=== PATIENT | male | born 1940 | race Hispanic/Latino ===

== ENCOUNTER 2018-08-26 19:20 | Observation (INO) | payer MEDICARE ==
[~2018-08-26] VITALS: Ht 175.3 cm; Wt 159.0 kg
[2018-08-26 20:26] LABS: EOSINOPHILS % (AUTO) 5.4 % (0.0-8.0); HEMATOCRIT 37.2 % (42-54); MEAN CORPUSCULAR HEMOGLOBIN 28.5 pg (27.0-33.0); MEAN CORPUSCULAR HGB CONC 32.3 g/dL (32.0-36.0); MEAN CORPUSCULAR VOLUME 88.3 fL (79-99); MONOCYTES % (AUTO) 8.6 % (3.0-13.0); PLATELET COUNT (AUTO) 229 K/uL (130-400); RED BLOOD CELL COUNT(AUTO) 4.22 MIL/uL (4.50-6.20); RED CELL DISTRIBUTION WIDTH 13.5 % (11.0-15.5); WHITE BLOOD COUNT (AUTO) 8.8 K/uL (4.8-10.8)
[2018-08-26 20:38] LABS: INR 0.97 (0.85-1.15); PARTIAL THROMBOPLASTIN TIME 27.3 SEC (26.3-35.5); PROTHROMBIN TIME 10.2 SEC (9.6-11.6)
[2018-08-26 20:48] LABS: CREATININE 1.3 mg/dL (0.5-1.5); POTASSIUM 5.3 mmol/L (3.5-5.1)
[2018-08-26 20:53] LABS: ALBUMIN 3.3 g/dL (3.5-5.0); BILIRUBIN,TOTAL 0.2 mg/dL (0.2-1.0); TOTAL PROTEIN, SERUM 6.9 g/dL (6.0-8.3)
[2018-08-26 21:18] LABS: APPEARANCE,URINE Clear (CLEAR); BILIRUBIN,URINE Negative (NEGATIVE); COLOR,URINE Yellow (YELLOW); GLUCOSE, URINE (UA) Negative (NEGATIVE); KETONES,URINE Negative (NEGATIVE); LEUKOCYTE ESTERASE ,URINE Trace (NEGATIVE); NITRATE,URINE Negative (NEGATIVE); OCCULT BLOOD,URINE Negative (NEGATIVE); PH,URINE 6.5 (5.0-8.0); PROTEIN,URINE Negative (NEGATIVE); UROBILINOGEN,URINE 0.2 mg/dL (0.2-1.0)
[2018-08-26 21:35] LABS: BACTERIA,URINE Rare /HPF (None Seen); RBC,URINE None Seen /HPF (0-1); SQUAMOUS EPITHELIAL CELL,UR None Seen /HPF (0-2); WBC,URINE 0-1 /HPF (0-1)
[2018-08-26] MEDS: SODIUM CHLORIDE 0.9% 1000ML 1,000 ML IV SCH (22:34)
[2018-08-26] MEDS ORDERED: DEXTROSE 50%-WATER 50 ML DISP.SYRIN IV ONE (22:41)
[2018-08-26] MEDS ORDERED: INSULIN HUMULIN R 100 UNIT/ML 3ML ONE (22:41)
[2018-08-26] MEDS ORDERED: ACETAMINOPHEN 325 MG TAB PO PRN (22:45)
[2018-08-26] MEDS ORDERED: ONDANSETRON HCL 4 MG/2 ML VIAL IV PRN (22:45)
[2018-08-26] MEDS ORDERED: ALBUTEROL SULFATE 0.083% 2.5 MG/3 ML INH IH PRN (22:45)
[2018-08-26] MEDS: DOXYCYCLINE 100MG+NS 250ML 250 ML IV SCH (22:45)
[2018-08-26] MEDS ORDERED: GUAIFENESIN-CODEINE 5 ML SYRUP PO PRN (23:00)
[2018-08-26] MEDS ORDERED: SODIUM CHLORIDE 0.9% 1000ML 1,000 ML IV ONE (23:28)
[2018-08-26] MEDS ORDERED: DOXYCYCLINE 100MG+NS 250ML 250 ML IV ONE (23:28)
[2018-08-27 01:25] VITALS: BP 160/76
[2018-08-27 03:50] VITALS: BP 151/51
[2018-08-27 04:58] LABS: BILIRUBIN,TOTAL 0.4 mg/dL (0.2-1.0); CREATININE 1.2 mg/dL (0.5-1.5); POTASSIUM 4.5 mmol/L (3.5-5.1); TOTAL PROTEIN, SERUM 6.7 g/dL (6.0-8.3)
[2018-08-27] MEDS: INSULIN HUMULIN R 100 UNIT/ML 3ML SQ SCH ×4 (06:48→21:00)
[2018-08-27 08:23] VITALS: BP 141/53
[2018-08-27] MEDS ORDERED: SODIUM POLYSTYRENE SULFONATE 15 GM/60 ML ML PO SCH (09:00)
[2018-08-27] MEDS: FAMOTIDINE/PF 20 MG/2 ML VIAL IV SCH ×2 (09:02→21:25)
[2018-08-27] MEDS: SODIUM CHLORIDE 0.9% 1000ML 1,000 ML IV SCH (09:10)
[2018-08-27] MEDS: DOXYCYCLINE 100MG+NS 250ML 250 ML IV SCH ×2 (11:46→21:26)
[2018-08-27] MEDS ORDERED: ATOR40TA71 PO (12:11)
[2018-08-27] MEDS ORDERED: METF-444 PO (12:11)
[2018-08-27] MEDS ORDERED: ASPI-1181 PO (12:11)
[2018-08-27] MEDS ORDERED: AMLO5TAB9 PO (12:11)
[2018-08-27] MEDS ORDERED: ALBU0.63 IH (12:11)
[2018-08-27] MEDS ORDERED: ALBU8.5H8 IH (12:11)
[2018-08-27] MEDS ORDERED: IPRATROPIUM/ALBUTEROL SULFATE 3 ML SOLUTION IH PRN (12:45)
[2018-08-27] MEDS: IPRATROPIUM 0.5 MG/2.5 ML INH IH SCH ×2 (15:09→20:23)
[2018-08-27 16:00] VITALS: BP 160/77
[2018-08-27 19:40] VITALS: BP 159/71
[2018-08-27] MEDS: ATORVASTATIN CALCIUM 40 MG TABLET PO SCH (21:26)
[2018-08-27 23:09] VITALS: BP 155/70
[2018-08-28 04:00] VITALS: BP 145/61
[2018-08-28 04:30] LABS: HEMATOCRIT 38.4 % (42-54); MEAN CORPUSCULAR HEMOGLOBIN 28.3 pg (27.0-33.0); MEAN CORPUSCULAR VOLUME 88.4 fL (79-99); NUCLEATED RED BLOOD CELLS 0.1 % (0.0-0.19); PLATELET COUNT (AUTO) 208 K/uL (130-400); RED BLOOD CELL COUNT(AUTO) 4.34 MIL/uL (4.50-6.20); RED CELL DISTRIBUTION WIDTH 13.8 % (11.0-15.5); WHITE BLOOD COUNT (AUTO) 7.1 K/uL (4.8-10.8)
[2018-08-28 04:45] LABS: CREATININE 1.2 mg/dL (0.5-1.5); POTASSIUM 4.5 mmol/L (3.5-5.1)
[2018-08-28] MEDS: INSULIN HUMULIN R 100 UNIT/ML 3ML SQ SCH ×4 (06:26→20:56)
[2018-08-28] MEDS: IPRATROPIUM 0.5 MG/2.5 ML INH IH SCH ×2 (08:21→20:37)
[2018-08-28] MEDS ORDERED: AMLODIPINE BESYLATE 5 MG TAB PO SCH (09:00)
[2018-08-28] MEDS ORDERED: ASPIRIN 81 MG EC TAB PO SCH (09:00)
[2018-08-28 09:24] VITALS: BP 133/59
[2018-08-28] MEDS: DOXYCYCLINE 100MG+NS 250ML 250 ML IV SCH (09:49)
[2018-08-28] MEDS: FAMOTIDINE/PF 20 MG/2 ML VIAL IV SCH ×2 (10:00→21:16)
[2018-08-28] MEDS ORDERED: DOXYCYCLINE HYCLATE 100 MG TABLET PO SCH (10:30)
[2018-08-28 12:06] VITALS: BP 147/81
[2018-08-28 17:14] VITALS: BP 131/61
[2018-08-28 20:18] VITALS: BP 160/67
[2018-08-28] MEDS: ATORVASTATIN CALCIUM 40 MG TABLET PO SCH (21:16)
[2018-08-28] MEDS ORDERED: DOXYCYCLINE HYCLATE 100 MG TABLET PO ONE (22:19)
[2018-08-28] MEDS ORDERED: DOXY100C2 PO (22:39)
[2018-08-28] MEDS ORDERED: DOXY-252 PO (22:40)
--- NOTE | 2018-08-28 22:57 | NUR ---
Patient is going with Daughter Cherie [phone] to her home, [place] in private car. Patient will see his primary MD Dr.Juan Dominguez in 2 days. Prescription available to order picker/assembler at [facility] ,[facility].
== END 2018-08-28 22:51 | disposition home or self-care (01) ==
LOC: EDH 19:20 → EDHIP 22:00 → 4CH 08-27 01:13
PROVIDERS: ADMIT Internal Medicine; ATTEND Internal Medicine
DX: J20.9 Acute bronchitis, unspecified (principal); E87.5 Hyperkalemia; E11.9 Type 2 diabetes mellitus without complications; J18.9 Pneumonia, unspecified organism; E66.01 Morbid (severe) obesity due to excess calories; E78.5 Hyperlipidemia, unspecified; I10 Essential (primary) hypertension; Z68.43 Body mass index [BMI] 50.0-59.9, adult
CPT/HCPCS: 36415 ×3; 71045; 80048; 80053 ×2; 81001; 82948 ×8; 83880 ×2; 84484; 85025; 85027; 85610; 85730; 93005; 94640 ×3; 94664; 96365; 96366 ×2; 96375; 96376 ×2; 99284; G0378 ×49; J1815; J3490 ×8; J7030; J7070

== ENCOUNTER 2018-12-22 17:58 | Emergency (ER) | payer MEDICARE ==
[~2018-12-22 17:58] MED LIST: AMLO5TAB9 PO; ASPI-1181 PO; ATOR40TA71 PO; DOXY-252 PO; METF-444 PO
[2018-12-22 18:21] LABS: BASOPHILS % (AUTO) 0.3 % (0.0-5.0); EOSINOPHILS % (AUTO) 1.3 % (0.0-8.0); HEMATOCRIT 41.7 % (42-54); LYMPHOCYTES % (AUTO) 11.2 % (21.0-51.0); MEAN CORPUSCULAR HEMOGLOBIN 28.8 pg (27.0-33.0); MEAN CORPUSCULAR HGB CONC 32.7 g/dL (32.0-36.0); MONOCYTES % (AUTO) 5.4 % (3.0-13.0); NEUTROPHILS % (AUTO) 81.8 % (40.0-77.0); PLATELET COUNT (AUTO) 224 K/uL (130-400); RED BLOOD CELL COUNT(AUTO) 4.74 MIL/uL (4.50-6.20); RED CELL DISTRIBUTION WIDTH 13.3 % (11.0-15.5); WHITE BLOOD COUNT (AUTO) 12.6 K/uL (4.8-10.8)
[2018-12-22 18:32] LABS: CREATININE 1.3 mg/dL (0.5-1.5); POTASSIUM 4.9 mmol/L (3.5-5.1)
[2018-12-22 18:36] LABS: ALBUMIN 3.6 g/dL (3.5-5.0); BILIRUBIN,TOTAL 0.3 mg/dL (0.2-1.0); TOTAL PROTEIN, SERUM 7.9 g/dL (6.0-8.3)
[2018-12-22] MEDS ORDERED: ONDANSETRON HCL 4 MG/2 ML VIAL ONE (18:47)
[2018-12-22] MEDS ORDERED: SODIUM CHLORIDE 0.9% 1000ML 1,000 ML IV ONE (18:48)
== END 2018-12-22 20:04 | disposition home or self-care (01) ==
LOC: EDH 17:58
DX: R11.10 Vomiting, unspecified (principal); I10 Essential (primary) hypertension; E11.9 Type 2 diabetes mellitus without complications; E78.5 Hyperlipidemia, unspecified; Z87.891 Personal history of nicotine dependence
CPT/HCPCS: 36415; 71045; 74018; 80053; 83690; 84484; 85025; 93005; 96361; 96374; 99285; J2405; J7030

== ENCOUNTER 2022-02-21 21:44 | Emergency (ER) | payer OTHER, MEDICARE ==
[~2022-02-21] VITALS: Ht 175.3 cm; Wt 151.0 kg
[~2022-02-21 21:44] MED LIST changes: +AMLO-257 PO; -AMLO5TAB9 PO; -ASPI-1181 PO; +ASPI-1443 PO
[2022-02-21 22:51] VITALS: BP 139/63
== END 2022-02-21 23:01 | disposition home or self-care (01) ==
LOC: EDH 21:44
DX: K43.9 Ventral hernia without obstruction or gangrene (principal); E11.9 Type 2 diabetes mellitus without complications; I10 Essential (primary) hypertension; Z79.84 Long term (current) use of oral hypoglycemic drugs; Z90.49 Acquired absence of other specified parts of digestive tract

== ENCOUNTER 2023-01-02 07:28 | Observation (INO) | payer OTHER, MEDICARE ==
[2022-12-30 13:09] LABS: BASOPHILS % (AUTO) 0.5 % (0.0-5.0); EOSINOPHILS % (AUTO) 2.6 % (0.0-8.0); LYMPHOCYTES % (AUTO) 20.8 % (21.0-51.0); MEAN CORPUSCULAR HEMOGLOBIN 27.8 pg (27.0-33.0); MEAN CORPUSCULAR HGB CONC 30.2 g/dL (32.0-36.0); MEAN CORPUSCULAR VOLUME 91.9 fL (79-99); NEUTROPHILS % (AUTO) 66.9 % (40.0-77.0); PLATELET COUNT (AUTO) 220 K/uL (130-400); RED BLOOD CELL COUNT(AUTO) 4.79 MIL/uL (4.50-6.20); RED CELL DISTRIBUTION WIDTH 13.2 % (11.0-15.5); WHITE BLOOD COUNT (AUTO) 8.8 K/uL (4.8-10.8)
[2022-12-30 13:10] LABS: APPEARANCE,URINE CLEAR (CLEAR); BILIRUBIN,URINE NEGATIVE (NEGATIVE); COLOR,URINE LIGHT-YELLOW (YELLOW); GLUCOSE, URINE (UA) NEGATIVE (NEGATIVE); KETONES,URINE NEGATIVE (NEGATIVE); LEUKOCYTE ESTERASE ,URINE NEGATIVE Leu/uL (NEGATIVE); NITRATE,URINE NEGATIVE (NEGATIVE); OCCULT BLOOD,URINE NEGATIVE (NEGATIVE); PROTEIN,URINE NEGATIVE (NEGATIVE); UROBILINOGEN,URINE 0.2 mg/dL (0.2-1.0)
[2022-12-30 13:19] LABS: INR 0.99 (0.85-1.15); PROTHROMBIN TIME 10.8 SEC (9.6-11.6)
[2022-12-30 13:20] LABS: PARTIAL THROMBOPLASTIN TIME 28.2 SEC (26.3-35.5)
[2022-12-30 13:22] LABS: ALBUMIN 3.5 g/dL (3.5-5.0); CREATININE 1.4 mg/dL (0.5-1.5); POTASSIUM 4.9 mmol/L (3.5-5.1); TOTAL PROTEIN, SERUM 7.6 g/dL (6.0-8.3)
[2022-12-30 13:41] VITALS: BP 170/70
[2023-01-02] VITALS (35 sets, daily range): BP systolic 108–146; BP diastolic 54–85
[~2023-01-02] VITALS: Ht 177.8 cm; Wt 154.4 kg
[~2023-01-02 07:28] MED LIST changes: -AMLO-257 PO; -DOXY-252 PO; +FURO20TA4 PO; -METF-444 PO; +METF-910 PO; +TIOT4MIS3 IH
[2023-01-02] MEDS ORDERED: 0.9%NACL 1000ML 1,000 ML IV ONE (08:49)
[2023-01-02] MEDS ORDERED: CEFAZOLIN SODIUM 1 GM VIAL ONE (08:49)
[2023-01-02] MEDS ORDERED: LIDOCAINE PF 100MG/5ML (2%) SYRINGE 5ML ONE (10:30)
[2023-01-02] MEDS ORDERED: DEXAMETHASONE SOD PHOSPHATE 10MG/ML 1ML VIAL ONE (10:30)
[2023-01-02] MEDS ORDERED: SUCCINYLCHOLINE 200MG/10ML SYR ONE (10:30)
[2023-01-02] MEDS ORDERED: PROPOFOL 10 MG/ML 20ML VIAL IV ONE (10:31)
[2023-01-02] MEDS ORDERED: ONDANSETRON 4MG INJ ONE ×2 (10:31→15:21)
[2023-01-02] MEDS ORDERED: GLYCOPYRROLATE 1 MG/5 ML SYRINGE ONE (10:31)
[2023-01-02] MEDS ORDERED: NEOSTIGMINE 5MG/5ML SYR IV ONE (10:31)
[2023-01-02] MEDS ORDERED: ROCURONIUM 10MG/1ML SYR 10 MG/ML ML ONE ×2 (10:32→12:37)
[2023-01-02] MEDS ORDERED: MIDAZOLAM HCL 1 MG/ML 2ML VIAL ONE (10:32)
[2023-01-02] MEDS ORDERED: FENTANYL CITRATE PF 50 MCG/1 ML 2ML VIAL ONE (10:32)
[2023-01-02] MEDS ORDERED: BUPIVACAINE/PF 0.5% 30ML VIAL ONE (10:33)
[2023-01-02] MEDS ORDERED: BUPIVACAINE/PF 0.5% 30ML VIAL INJ ONE (11:49)
[2023-01-02] MEDS ORDERED: CEFAZOLIN SODIUM 3 GM VIAL IVPB ONE (11:54)
[2023-01-02] MEDS ORDERED: PHENYLEPHRINE HCL 10 MG/ML 1ML VIAL IV ONE (11:56)
[2023-01-02] MEDS ORDERED: CARV6.25 PO (11:58)
[2023-01-02] MEDS ORDERED: SUGAMMADEX SODIUM 200 MG/2 ML VIAL IV ONE (12:59)
[2023-01-02] MEDS ORDERED: MEPERIDINE-PF 25 MG/ML SYG ONE ×3 (14:55→15:42)
[2023-01-02] MEDS ORDERED: IPRATROPIUM/ALBUTEROL SULFATE 3 ML SOLUTION IH ONE ×2 (16:44→17:00)
[2023-01-02] MEDS ORDERED: TIOT4MIS3 IH (16:49)
[2023-01-02] MEDS ORDERED: SIMETHICONE 80 MG TAB.CHEW ONE (17:25)
[2023-01-02] MEDS ORDERED: MORPHINE 4 MG SYG IV PRN (19:00)
[2023-01-02] MEDS ORDERED: ONDANSETRON 4MG INJ IVP PRN (19:00)
[2023-01-02] MEDS: ALBUTEROL 0.083% 2.5 MG/3 ML INH IH SCH (21:34)
[2023-01-03 00:15] VITALS: BP 127/72
[2023-01-03 01:15] VITALS: BP 112/60
[2023-01-03 02:15] VITALS: BP 118/62
[2023-01-03 05:58] LABS: BASOPHILS % (AUTO) 0.1 % (0.0-5.0); HEMATOCRIT 40.8 % (42-54); LYMPHOCYTES % (AUTO) 9.1 % (21.0-51.0); MEAN CORPUSCULAR HEMOGLOBIN 28.4 pg (27.0-33.0); MEAN CORPUSCULAR HGB CONC 29.9 g/dL (32.0-36.0); MEAN CORPUSCULAR VOLUME 94.9 fL (79-99); MONOCYTES % (AUTO) 6.7 % (3.0-13.0); NEUTROPHILS % (AUTO) 83.9 % (40.0-77.0); PLATELET COUNT (AUTO) 178 K/uL (130-400); RED CELL DISTRIBUTION WIDTH 13.2 % (11.0-15.5); WHITE BLOOD COUNT (AUTO) 10.7 K/uL (4.8-10.8)
[2023-01-03 06:04] LABS: CREATININE 1.5 mg/dL (0.5-1.5); POTASSIUM 5.6 mmol/L (3.5-5.1)
[2023-01-03] MEDS: ALBUTEROL 0.083% 2.5 MG/3 ML INH IH SCH (07:03)
[2023-01-03 08:00] VITALS: BP 126/58
[2023-01-03] MEDS ORDERED: FUROSEMIDE 20 MG TABLET PO SCH (09:00)
[2023-01-03] MEDS ORDERED: CARVEDILOL 6.25 MG TABLET PO SCH (09:00)
[2023-01-03] MEDS ORDERED: TRAMADOL HCL 50 MG TABLET PO PRN (11:30)
[2023-01-03] MEDS ORDERED: TRAMADOL HCL 50 MG TABLET PO ONE (11:30)
[2023-01-03 12:00] VITALS: BP 106/55
[2023-01-03] MEDS ORDERED: SIMETHICONE 80 MG TAB.CHEW PO SCH (14:00)
[2023-01-03 16:00] VITALS: BP 121/47
[2023-01-03] MEDS ORDERED: ATORVASTATIN 40 MG TABLET PO SCH (21:00)
[2023-01-14] MEDS ORDERED: AEC81 PO (03:50)
== END 2023-01-03 18:00 | disposition home or self-care (01) ==
LOC: DAH 07:28 → DAHIP 07:29 → 3DH 20:00
PROVIDERS: ADMIT Student in an Organized Health Care Education/Training Program; ATTEND Student in an Organized Health Care Education/Training Program
DX: K43.6 Other and unspecified ventral hernia with obstruction, without gangrene (principal); Z20.822 Contact with and (suspected) exposure to COVID-19; I10 Essential (primary) hypertension; E11.65 Type 2 diabetes mellitus with hyperglycemia; I25.10 Atherosclerotic heart disease of native coronary artery without angina pectoris; E66.01 Morbid (severe) obesity due to excess calories; J96.00 Acute respiratory failure, unspecified whether with hypoxia or hypercapnia; E78.00 Pure hypercholesterolemia, unspecified; Z87.891 Personal history of nicotine dependence; Z79.899 Other long term (current) drug therapy; Z98.890 Other specified postprocedural states; Z68.42 Body mass index [BMI] 45.0-49.9, adult
CPT/HCPCS: 80053; 85025 ×2; 85610; 85730; 87426; 81003; 36415 ×2; 94640 ×3; 49594; 82948 ×6; 93005; 94664; 94760 ×2; 96374; 80048; G0378 ×22; A4663; J7030 ×2; J0690 ×2; J3010; J0330; J3490 ×3; J1100; J2710; J2001; J2250; J2704; J2405 ×2; J2175 ×3; J2370; C1769; G0168; C1781; A4215; A4223; A4222; A4221; A4600; J2270

== ENCOUNTER 2023-02-07 05:37 | Inpatient (IN) | payer OTHER, MEDICARE ==
[~2023-02-07] VITALS: Ht 175.3 cm; Wt 146.2 kg
[~2023-02-07 05:37] MED LIST changes: +AEC81 PO; -ASPI-1443 PO; +CARV6.25 PO; +CEFU250T87 PO; +OXYB5TAB27 PO; +TAMS-1 PO
[2023-02-07 07:00] LABS: BASOPHILS % (AUTO) 0.1 % (0.0-5.0); EOSINOPHILS % (AUTO) 0.1 % (0.0-8.0); MEAN CORPUSCULAR HEMOGLOBIN 27.1 pg (27.0-33.0); MEAN CORPUSCULAR HGB CONC 30.6 g/dL (32.0-36.0); MEAN CORPUSCULAR VOLUME 88.6 fL (79-99); MONOCYTES % (AUTO) 9.5 % (3.0-13.0); NEUTROPHILS % (AUTO) 84.6 % (40.0-77.0); PLATELET COUNT (AUTO) 287 K/uL (130-400); RED BLOOD CELL COUNT(AUTO) 3.95 MIL/uL (4.50-6.20); RED CELL DISTRIBUTION WIDTH 13.2 % (11.0-15.5); WHITE BLOOD COUNT (AUTO) 15.3 K/uL (4.8-10.8)
[2023-02-07 07:13] LABS: ALBUMIN 2.3 g/dL (3.5-5.0); CREATININE 1.7 mg/dL (0.5-1.5); MAGNESIUM 1.3 mg/dL (1.80-2.40); POTASSIUM 3.9 mmol/L (3.5-5.1); TOTAL PROTEIN, SERUM 7.3 g/dL (6.0-8.3)
[2023-02-07] MEDS ORDERED: 0.9%NACL 1000ML 1,000 ML IV ONE (08:00)
[2023-02-07] MEDS ORDERED: VANCOMYCIN KIT 1 GM/250 ML IV.KIT IV ONE (08:00)
[2023-02-07] MEDS ORDERED: IOHEXOL-350 75 ML VIAL IV ONE (08:00)
[2023-02-07] MEDS ORDERED: ZOSYN 3.375GM +NS 50ML IVPB ONE (08:00)
[2023-02-07] MEDS ORDERED: MAGNESIUM 2GM PREMIX 50ML 50 ML IV SCH (09:30)
[2023-02-07] MEDS: INSULIN HUMULIN R 100 UNIT/ML 3ML SQ SCH ×2 (11:30→20:01)
[2023-02-07] MEDS ORDERED: ACETAMINOPHEN 325 MG TAB PO PRN ×2 (12:00)
[2023-02-07] MEDS ORDERED: ONDANSETRON 4MG INJ IV PRN (12:00)
[2023-02-07] MEDS ORDERED: 0.9%NACL 1000ML 1,000 ML IV SCH (12:00)
[2023-02-07 12:12] LABS: HEMOGLOBIN A1C 6.1 % (4.0-6.0)
[2023-02-07 14:30] VITALS: BP 120/51; PULSE 63; RESP 18
[2023-02-07 16:00] VITALS: BP 121/46; PULSE 61; RESP 16
[2023-02-07 19:00] VITALS: BP 107/54; PULSE 55; RESP 19
[2023-02-07] MEDS ORDERED: VANCOMYCIN PROTOCOL PER PHARMACY IV SCH (19:30)
[2023-02-07] MEDS ORDERED: 0.9%NACL 50ML IV SCH (19:30)
[2023-02-07] MEDS ORDERED: ZOSYN 3.375GM +NS 50ML IVPB SCH (19:30)
[2023-02-07] MEDS: FAMOTIDINE 20MG VIAL IV SCH (20:43)
[2023-02-07] MEDS: ZOSYN 3.375GM+NS 50ML 50 ML IVPB SCH (20:43)
[2023-02-07] MEDS: VANCOMYCIN 1G/250ML KIT 250 ML IV SCH (20:43)
[2023-02-07 23:00] VITALS: BP 111/47; PULSE 73; RESP 19
[2023-02-08] VITALS (30 sets, daily range): BP systolic 102–147; BP diastolic 41–94; PULSE 60–96; RESP 13–48; O2SAT 94–96
[2023-02-08 04:13] LABS: BASOPHILS % (AUTO) 0.4 % (0.0-5.0); EOSINOPHILS % (AUTO) 2.3 % (0.0-8.0); LYMPHOCYTES % (AUTO) 11.9 % (21.0-51.0); MEAN CORPUSCULAR HEMOGLOBIN 27.1 pg (27.0-33.0); MEAN CORPUSCULAR HGB CONC 29.7 g/dL (32.0-36.0); MEAN CORPUSCULAR VOLUME 91.4 fL (79-99); MONOCYTES % (AUTO) 11.2 % (3.0-13.0); NEUTROPHILS % (AUTO) 73.8 % (40.0-77.0); PLATELET COUNT (AUTO) 234 K/uL (130-400); RED BLOOD CELL COUNT(AUTO) 3.39 MIL/uL (4.50-6.20); RED CELL DISTRIBUTION WIDTH 13.5 % (11.0-15.5)
[2023-02-08 05:19] LABS: ERYTHROCYTE SEDIMENTATION RATE 55 MM/HR (0-20)
[2023-02-08] MEDS: INSULIN HUMULIN R 100 UNIT/ML 3ML SQ SCH ×4 (06:40→20:12)
[2023-02-08] MEDS: ZOSYN 3.375GM+NS 50ML 50 ML IVPB SCH ×3 (06:45→20:09)
[2023-02-08] MEDS: VANCOMYCIN 1G/250ML KIT 250 ML IV SCH (09:03)
[2023-02-08] MEDS ORDERED: LIDOCAINE PF 100MG/5ML (2%) SYRINGE 5ML ONE (12:04)
[2023-02-08] MEDS ORDERED: SUCCINYLCHOLINE CHLORIDE 20 MG/ML 10 ML VIAL ONE (12:04)
[2023-02-08] MEDS ORDERED: PROPOFOL 10 MG/ML 20ML VIAL IV ONE (12:05)
[2023-02-08] MEDS ORDERED: ROCURONIUM 10MG/1ML SYR 10 MG/ML ML ONE (12:05)
[2023-02-08] MEDS ORDERED: MIDAZOLAM HCL 1 MG/ML 2ML VIAL ONE (12:05)
[2023-02-08] MEDS ORDERED: FENTANYL CITRATE PF 50 MCG/1 ML 2ML VIAL ONE (12:06)
[2023-02-08] MEDS ORDERED: EPHEDRINE SULFATE 50 MG/ML AMPULE ONE (12:18)
[2023-02-08] MEDS ORDERED: IPRATROPIUM/ALBUTEROL SULFATE 3 ML SOLUTION IH ONE ×2 (13:07→13:10)
[2023-02-08] MEDS ORDERED: MEPERIDINE-PF 25 MG/ML SYG ONE ×2 (13:14→13:30)
[2023-02-08] MEDS: FAMOTIDINE 20MG VIAL IV SCH (13:28)
[2023-02-08] MEDS: MORPHINE 2 MG SYG IV PRN ×2 (14:06→14:27)
[2023-02-08] MEDS ORDERED: MORPHINE 4 MG SYG IVP PRN (22:00)
[2023-02-09] MEDS: ZOSYN 3.375GM+NS 50ML 50 ML IVPB SCH ×3 (03:43→19:49)
[2023-02-09] MEDS: GUAIFENESIN-DM 200/20 MG 10 ML PO PRN (03:56)
[2023-02-09 05:00] VITALS: BP 103/57; PULSE 75; RESP 19
[2023-02-09] MEDS: INSULIN HUMULIN R 100 UNIT/ML 3ML SQ SCH ×4 (05:44→20:48)
[2023-02-09 06:35] LABS: HEMATOCRIT 32.8 % (42-54); MEAN CORPUSCULAR HEMOGLOBIN 27.2 pg (27.0-33.0); MEAN CORPUSCULAR HGB CONC 29.6 g/dL (32.0-36.0); MEAN CORPUSCULAR VOLUME 92.1 fL (79-99); RED BLOOD CELL COUNT(AUTO) 3.56 MIL/uL (4.50-6.20); RED CELL DISTRIBUTION WIDTH 13.4 % (11.0-15.5); WHITE BLOOD COUNT (AUTO) 6.7 K/uL (4.8-10.8)
[2023-02-09 08:00] VITALS: BP 124/54; PULSE 74; RESP 18; O2SAT 95
[2023-02-09] MEDS: VANCOMYCIN 1G/250ML KIT 250 ML IV SCH (09:35)
[2023-02-09 10:11] LABS: APPEARANCE,URINE CLOUDY (CLEAR); BILIRUBIN,URINE NEGATIVE (NEGATIVE); COLOR,URINE LIGHT-YELLOW (YELLOW); GLUCOSE, URINE (UA) NEGATIVE (NEGATIVE); KETONES,URINE NEGATIVE (NEGATIVE); LEUKOCYTE ESTERASE ,URINE NEGATIVE Leu/uL (NEGATIVE); NITRATE,URINE NEGATIVE (NEGATIVE); OCCULT BLOOD,URINE NEGATIVE (NEGATIVE); PH,URINE 5.5 (5.0-8.0); PROTEIN,URINE 10 mg/dL (NEGATIVE); UROBILINOGEN,URINE 0.2 mg/dL (0.2-1.0)
[2023-02-09 10:27] LABS: BACTERIA,URINE RARE /HPF (None Seen); MUCUS,URINE RARE LPF (None Seen); URIC ACID CRYSTALS,URINE RARE /LPF (None Seen)
[2023-02-09 12:00] VITALS: BP 119/58; PULSE 75; RESP 18
[2023-02-09] MEDS ORDERED: FUROSEMIDE 40MG VIAL ONE (14:48)
[2023-02-09] MEDS ORDERED: FUROSEMIDE 20MG VIAL ONE (14:48)
[2023-02-09 16:00] VITALS: BP 126/64; PULSE 73; RESP 20
[2023-02-09] MEDS: FAMOTIDINE 20MG VIAL IV SCH (19:50)
[2023-02-09 20:00] VITALS: BP 103/62; PULSE 72; RESP 18; O2SAT 95
[2023-02-09] MEDS: HYDROXYZINE 25 MG TABLET PO PRN (22:34)
[2023-02-10] VITALS (8 sets, daily range): BP systolic 104–144; BP diastolic 49–67; PULSE 64–76; RESP 18–24; O2SAT 96–97
[2023-02-10] MEDS: ZOSYN 3.375GM+NS 50ML 50 ML IVPB SCH ×3 (03:33→20:16)
[2023-02-10] MEDS: INSULIN HUMULIN R 100 UNIT/ML 3ML SQ SCH ×4 (06:44→20:24)
[2023-02-10] MEDS: VANCOMYCIN 1G/250ML KIT 250 ML IV SCH (09:01)
[2023-02-10] MEDS: FAMOTIDINE 20MG VIAL IV SCH (20:17)
[2023-02-10] MEDS: FUROSEMIDE 20 MG TABLET PO SCH (20:23)
[2023-02-10] MEDS: ATORVASTATIN 40 MG TABLET PO SCH (20:23)
[2023-02-10] MEDS: CARVEDILOL 6.25 MG TABLET PO SCH (20:24)
[2023-02-10] MEDS: HYDROXYZINE 25 MG TABLET PO PRN (22:32)
[2023-02-11] VITALS (7 sets, daily range): BP systolic 107–141; BP diastolic 48–80; PULSE 58–75; RESP 18–24; O2SAT 96
[2023-02-11] MEDS: ZOSYN 3.375GM+NS 50ML 50 ML IVPB SCH ×3 (04:22→23:36)
[2023-02-11] MEDS: INSULIN HUMULIN R 100 UNIT/ML 3ML SQ SCH ×4 (05:26→20:12)
[2023-02-11] MEDS ORDERED: KCL 20 MEQ ERTAB PO PRN (08:00)
[2023-02-11] MEDS ORDERED: MAGNESIUM 2GM PREMIX 50ML 50 ML IV PRN (08:00)
[2023-02-11] MEDS ORDERED: POTASSIUM CHLORIDE 20MEQ/100ML 100 ML IV PRN (08:00)
[2023-02-11] MEDS ORDERED: POTASSIUM CHLORIDE 10% ELIXIR 20 MEQ/15 ML UDCUP PO PRN (08:00)
[2023-02-11 08:44] LABS: CREATININE 1.7 mg/dL (0.5-1.5); POTASSIUM 4.2 mmol/L (3.5-5.1)
[2023-02-11 08:48] LABS: ALBUMIN 2.2 g/dL (3.5-5.0); MAGNESIUM 1.9 mg/dL (1.80-2.40); TOTAL PROTEIN, SERUM 7.4 g/dL (6.0-8.3)
[2023-02-11] MEDS: VANCOMYCIN 1G/250ML KIT 250 ML IV SCH (10:00)
[2023-02-11] MEDS: ASPIRIN 81 MG EC TAB PO SCH (10:00)
[2023-02-11] MEDS: FUROSEMIDE 20 MG TABLET PO SCH ×2 (10:00→20:09)
[2023-02-11] MEDS: CARVEDILOL 6.25 MG TABLET PO SCH ×2 (10:01→20:08)
[2023-02-11 16:02] LABS: INR 0.98 (0.85-1.15); PROTHROMBIN TIME 11.4 SEC (9.6-11.6)
[2023-02-11 16:03] LABS: PARTIAL THROMBOPLASTIN TIME 21.6 SEC (26.3-35.5)
[2023-02-11] MEDS: ATORVASTATIN 40 MG TABLET PO SCH (20:08)
[2023-02-11] MEDS: FAMOTIDINE 20MG VIAL IV SCH (20:09)
[2023-02-11] MEDS: GUAIFENESIN-DM 200/20 MG 10 ML PO PRN (23:36)
[2023-02-12 04:34] VITALS: BP 149/67; PULSE 65; RESP 19
[2023-02-12] MEDS: INSULIN HUMULIN R 100 UNIT/ML 3ML SQ SCH ×3 (05:36→19:53)
[2023-02-12 05:48] LABS: BASOPHILS % (AUTO) 0.2 % (0.0-5.0); EOSINOPHILS % (AUTO) 6.1 % (0.0-8.0); HEMATOCRIT 35.8 % (42-54); LYMPHOCYTES % (AUTO) 25.7 % (21.0-51.0); MEAN CORPUSCULAR HEMOGLOBIN 26.5 pg (27.0-33.0); MEAN CORPUSCULAR HGB CONC 29.6 g/dL (32.0-36.0); MEAN CORPUSCULAR VOLUME 89.5 fL (79-99); MONOCYTES % (AUTO) 8.2 % (3.0-13.0); NEUTROPHILS % (AUTO) 59.1 % (40.0-77.0); PLATELET COUNT (AUTO) 340 K/uL (130-400); RED CELL DISTRIBUTION WIDTH 13.7 % (11.0-15.5); WHITE BLOOD COUNT (AUTO) 8.1 K/uL (4.8-10.8)
[2023-02-12 06:03] LABS: INR 0.96 (0.85-1.15); PROTHROMBIN TIME 11.2 SEC (9.6-11.6)
[2023-02-12 06:05] LABS: PARTIAL THROMBOPLASTIN TIME 25.7 SEC (26.3-35.5)
[2023-02-12 06:08] LABS: ALBUMIN 2.3 g/dL (3.5-5.0); CREATININE 1.9 mg/dL (0.5-1.5); POTASSIUM 4.2 mmol/L (3.5-5.1); TOTAL PROTEIN, SERUM 7.3 g/dL (6.0-8.3)
[2023-02-12] MEDS: ZOSYN 3.375GM+NS 50ML 50 ML IVPB SCH ×2 (06:50→14:42)
[2023-02-12 08:00] VITALS: BP 136/66; PULSE 61; RESP 18
[2023-02-12] MEDS: ASPIRIN 81 MG EC TAB PO SCH (11:10)
[2023-02-12] MEDS: FUROSEMIDE 20 MG TABLET PO SCH ×2 (11:11→20:09)
[2023-02-12] MEDS: CARVEDILOL 6.25 MG TABLET PO SCH ×2 (11:15→20:09)
[2023-02-12 12:00] VITALS: BP 124/61; PULSE 65; RESP 18
[2023-02-12] MEDS ORDERED: HONEY 1 APPL/ML TUBE TP ONE (14:32)
[2023-02-12] MEDS: MORPHINE 2 MG SYG IV PRN (14:42)
[2023-02-12 16:00] VITALS: BP 102/49; PULSE 65; RESP 18
[2023-02-12] MEDS: ATORVASTATIN 40 MG TABLET PO SCH (20:09)
[2023-02-12 20:12] VITALS: BP 149/57; PULSE 69; RESP 19
[2023-02-12] MEDS: FAMOTIDINE 20MG VIAL IV SCH (20:14)
[2023-02-12] MEDS: HYDROXYZINE 25 MG TABLET PO PRN (20:14)
[2023-02-12 23:41] VITALS: BP 129/64; PULSE 66; RESP 18
[2023-02-13] MEDS: ZOSYN 3.375GM+NS 50ML 50 ML IVPB SCH ×3 (00:41→13:01)
[2023-02-13] MEDS: GUAIFENESIN-DM 200/20 MG 10 ML PO PRN (03:28)
[2023-02-13 03:50] VITALS: BP 145/56; PULSE 64; RESP 18
[2023-02-13] MEDS: INSULIN HUMULIN R 100 UNIT/ML 3ML SQ SCH ×2 (05:37→11:30)
[2023-02-13 08:00] VITALS: BP 145/65; PULSE 56; RESP 18
[2023-02-13] MEDS: CARVEDILOL 6.25 MG TABLET PO SCH (08:13)
[2023-02-13] MEDS: ASPIRIN 81 MG EC TAB PO SCH (08:13)
[2023-02-13] MEDS: FUROSEMIDE 20 MG TABLET PO SCH (08:13)
[2023-02-13] MEDS: HYDROXYZINE 25 MG TABLET PO PRN (11:46)
[2023-02-13 11:53] VITALS: BP 118/51; PULSE 53; RESP 20
[2023-02-13 14:48] LABS: PROTHROMBIN TIME 11.6 SEC (9.6-11.6)
== END 2023-02-13 19:30 | disposition home or self-care (01) | DRG 854 ==
LOC: EDH 05:37 → EDHIP 11:48 → 3CH 14:30
PROVIDERS: ADMIT Hospitalist; ATTEND Hospitalist
PROC: 0JB80ZZ Excision of Abdomen Subcutaneous Tissue and Fascia, Open Approach (ICD-10-PCS; principal; 2023-02-08 12:05)
DX: A41.9 Sepsis, unspecified organism (principal); L02.216 Cutaneous abscess of umbilicus; Z68.42 Body mass index [BMI] 45.0-49.9, adult; Z20.822 Contact with and (suspected) exposure to COVID-19; M79.3 Panniculitis, unspecified; E66.01 Morbid (severe) obesity due to excess calories; E11.9 Type 2 diabetes mellitus without complications; K40.90 Unilateral inguinal hernia, without obstruction or gangrene, not specified as recurrent; E78.00 Pure hypercholesterolemia, unspecified; I10 Essential (primary) hypertension; Z53.20 Procedure and treatment not carried out because of patient's decision for unspecified reasons; N43.3 Hydrocele, unspecified
CPT/HCPCS: 36415; 74177; 78708; 80053; 80202; 81001; 82948; 83036; 83605; 83735; 84145; 85025; 85027; 85610; 85651; 85730; 86140; 86850; 86900; 86901; 87040; 87070; 87076; 87077; 87186; 87205; 87635; 94640; A9562; C1894; G0378; J0330; J1940; J2001; J2175; J2250; J2270; J2405; J2543; J2704; J3010; J3370; J3475; J3490; J7030; Q9967; A4452; A4930; A6213; C1750

== ENCOUNTER 2023-06-04 08:57 | Emergency (ER) | payer OTHER, MEDICARE ==
[~2023-06-04] VITALS: Ht 177.8 cm; Wt 142.0 kg
[~2023-06-04 08:57] MED LIST changes: -CEFU250T87 PO; -OXYB5TAB27 PO; -TAMS-1 PO; -TIOT4MIS3 IH
[2023-06-04 09:29] LABS: BASOPHILS # (AUTO) 0.04 K/uL (0.00-0.20); BASOPHILS % (AUTO) 0.5 % (0.0-5.0); EOSINOPHILS # (AUTO) 0.12 K/uL (0.00-0.70); EOSINOPHILS % (AUTO) 1.4 % (0.0-8.0); HEMATOCRIT 37.4 % (42-54); IMMATURE GRANULOCYTE ABSOLUTE 0.03 K/uL (0-1); LYMPHOCYTES # (AUTO) 1.1 K/uL (1.0-4.8); LYMPHOCYTES % (AUTO) 12.6 % (21.0-51.0); MEAN CORPUSCULAR HEMOGLOBIN 26.7 pg (27.0-33.0); MEAN CORPUSCULAR HGB CONC 29.9 g/dL (32.0-36.0); MONOCYTES # (AUTO) 1.1 K/uL (0.1-1.0); MONOCYTES % (AUTO) 12.6 % (3.0-13.0); NEUTROPHILS # (AUTO) 6.4 K/uL (1.8-7.7); NEUTROPHILS % (AUTO) 72.6 % (40.0-77.0); PLATELET COUNT (AUTO) 209 K/uL (130-400); RED CELL DISTRIBUTION WIDTH 13.6 % (11.0-15.5); WHITE BLOOD COUNT (AUTO) 8.8 K/uL (4.8-10.8)
[2023-06-04 09:38] LABS: CREATININE 1.6 mg/dL (0.5-1.5); POTASSIUM 3.9 mmol/L (3.5-5.1)
[2023-06-04 09:45] LABS: ALBUMIN 2.9 g/dL (3.5-5.0); BILIRUBIN,TOTAL 0.5 mg/dL (0.2-1.0); TOTAL PROTEIN, SERUM 6.7 g/dL (6.0-8.3)
[2023-06-04] MEDS ORDERED: FURO40TA7 PO (11:29)
[2023-06-04 11:38] VITALS: BP 121/55; PULSE 70; RESP 16; O2SAT 100
== END 2023-06-04 11:38 | disposition home or self-care (01) ==
LOC: EDH 08:57
DX: K40.20 Bilateral inguinal hernia, without obstruction or gangrene, not specified as recurrent (principal); N43.3 Hydrocele, unspecified; I11.0 Hypertensive heart disease with heart failure; I50.9 Heart failure, unspecified; E11.9 Type 2 diabetes mellitus without complications; E78.00 Pure hypercholesterolemia, unspecified; Z79.82 Long term (current) use of aspirin; Z79.84 Long term (current) use of oral hypoglycemic drugs; Z90.49 Acquired absence of other specified parts of digestive tract
CPT/HCPCS: 36415; 76870; 80053; 83605; 85025